=== PATIENT | female | born 1960 | race American Indian/Alaskan Native ===

== ENCOUNTER 2016-02-27 14:34 | Day surgery (SDC) | payer MEDICARE ==
[2016-02-27] MEDS ORDERED: ATIVAN IM ONE (15:45)
[2016-02-27 17:06] VITALS: BP 139/89
--- NOTE | 2016-02-28 10:11 | Magnetic Resonance Report ---
MRI LUMBAR SPINE WITHOUT CONTRAST HISTORY: Low back pain. TECHNIQUE: axial T1, T2. sagittal T1,T2, STIR. COMPARISON: none. FINDINGS: The conus terminates at L1-2. No signal abnormality or mass. The cauda equina is within normal limits. No central canal stenosis. Normal height and alignment of the lumbar vertebra. The facet joints are in appropriate relationship. Mild diffuse facet arthropathy is noted. Normal bone marrow signal. No acute fracture or suspicious bone lesion. The paraspinal soft tissues are unremarkable. The discs are desiccated. Mild disc space narrowing of L5-S1. L1-2: No significant abnormality. L2-3: No significant abnormality. L3-4: No significant abnormality. L4-5: Mild posterior bulging disc and mild to moderate facet arthropathy. Mild hypertrophy of ligamentum flavum. L5-S1: Mild disc space narrowing and marginal spurring is noted. Mild facet arthropathy. Bilateral neural foraminal narrowing is estimated at 50%. The left side appears slightly more affected. IMPRESSION: Lumbar spondylosis as outlined above. L5-S1 appears to be the most affected level No evidence for fracture, bone lesion or malalignment.
== END 2016-02-27 17:20 | disposition home or self-care (01) ==
LOC: OPU 14:34 → MRI 14:34 → OPU 17:20
PROVIDERS: ATTEND Physical Medicine & Rehabilitation Pain Medicine
DX: M47.816 Spondylosis without myelopathy or radiculopathy, lumbar region (principal); M12.88 Other specific arthropathies, not elsewhere classified, other specified site; M48.07 Spinal stenosis, lumbosacral region
CPT/HCPCS: 72148; 96372; J2060

== ENCOUNTER 2017-11-19 07:09 | Day surgery (SDC) | payer MEDICARE ==
[2017-11-17 13:27] LABS: Basophils # (Auto) 0.1 K/mm3 (0.0-0.1); Basophils % (Auto) 0.6 % (0.0-1.8); Eosinophils # (Auto) 0.3 K/mm3 (0.0-0.4); Eosinophils % (Auto) 1.8 % (0.0-4.3); Hematocrit 47.3 % (30.3-42.9); Hemoglobin 15.9 gm/dl (10.1-14.3); Lymphocytes % (Auto) 18.7 % (13.4-35.0); Mean Corpuscular HGB Conc 34 % (30-34); Mean Corpuscular Hemoglobin 30 pg (28-32); Mean Corpuscular Volume 90 fl (79-97); Monocytes # (Auto) 1.3 K/mm3 (0.0-0.8); Monocytes % (Auto) 7.9 % (0.0-7.3); Platelet Count 311 K/mm3 (140-440); Red Blood Count 5.28 M/mm3 (3.65-5.03)
--- NOTE | 2017-11-17 14:10 | Anesthesia Consultation ---
Anesthesia Consult and Med Hx Date of service: 11/17/17 - Airway Anesthetic Teeth Evaluation: Poor, Partials (upper) ROM Head & Neck: Adequate Mental/Hyoid Distance: Adequate Mallampati Class: Class II Intubation Access Assessment: Probably Good - Pulmonary Exam CTA: Yes - Cardiac Exam Cardiac Exam: RRR - Pre-Operative Health Status ASA Pre-Surgery Classification: ASA3 Proposed Anesthetic Plan: General - Pulmonary Hx Smoking: Yes (1/4ppd x 38yrs) COPD: Yes - Central Nervous System Hx Back Pain: Yes (back, neck, knee chronic pain pt.) Hx Psychiatric Problems: Yes (ADHD, depression) - Gastrointestinal Hx Gastroesophageal Reflux Disease: Yes - Hematic Hx Sickle Cell Disease: Yes (Trait only) - Other Systems Hx Alcohol Use: Yes Hx Cancer: No - Additional Comments Anesthesia Medical History Comments: OA, heavy bleeding, DJD, DDD
[2017-11-19] MEDS ORDERED: SILVER NITRATE TP ONE (07:35)
--- NOTE | 2017-11-19 07:55 | Short Stay Summary ---
Short Stay Documentation Date of service: 11/19/17 Narrative H&P: 57y/o with abnormal uterine bleeding. The patient underwent an endometrial biopsy with benign findings. Pelvic ultrasound was unremarkable. She has failed medical management. Patient has been reassessed/reevaluated/re-examined. H&P has been reviewed. No interval changes. - History Principal diagnosis: Abnormal uterine bleeding Past Medical History: COPD, pulmonary embolism, other (chronic pain; osteoporosis) Past Surgical History: , Other (orthopedic surgery; adenoids) Social history: - Allergies and Medications Current Medications: Allergies ibuprofen [From Motrin] Allergy (Verified 11/17/17 17:54) Hives Home Medications Medication Instructions Recorded Confirmed Last Taken Type Oxycodone HCl 5 mg PO TID 02/27/16 11/19/17 11/19/17 05:50 History Sertraline [Zoloft] 100 mg PO QDAY 02/27/16 11/19/17 11/19/17 05:30 History Vitamin D 50,000 units PO QWEEK 02/27/16 11/19/17 11/18/17 History fentaNYL 1 patch INTRADERMA Q3D 02/27/16 11/19/17 11/18/17 History ALBUTEROL NEB's [Proventil] 2.5 mg IH TID PRN 11/14/17 11/19/17 11/18/17 21:45 History ALPRAZolam [Xanax TAB] 1 tab PO HS 11/14/17 11/19/17 11/18/17 History Amoxicillin 500 mg PO BID 11/14/17 11/19/17 11/18/17 History Budesonide/Formoterol Fumarate 1 puff IH PRN PRN 11/14/17 11/19/17 11/19/17 05: 30 History [Symbicort 160-4.5 Mcg Inhaler] Active Medications Famotidine (Pepcid) 20 mg IV PREOP NR Stop: 11/19/17 21:00 Sodium Chloride (Nacl 0.9% 1000 Ml) 1,000 mls @ 42 mls/hr IV DIRECT BEENA Midazolam HCl (Versed) 2 mg IV PREOP PRN PRN Reason: Agitation Stop: 11/19/17 21:00 - Physical exam General appearance: no acute distress Integumentary: no rash HEENT: Atraumatic Lungs: Clear to auscultation Breasts: deferred Heart: Regular rate Gastrointestinal: normal Female Genitourinary: deferred Rectal Exam: deferred Neurological: no Normal gait - Brief post op/procedure progress note Date of procedure: 11/19/17 Pre-op diagnosis: abnormal uterine bleeding Post-op diagnosis: same Procedure: Hysteroscopy Endometrial ablation via NovaSure Anesthesia: GETA Surgeon: BERONICA BRICENO Estimated blood loss: minimal Pathology: none Condition: stable - Hospital course Hospital course: The patient was admitted the day of surgery and underwent a NovaSure for abnormal uterine bleeding. Please see operative note for details of surgery. Her postoperative course was uneventful. - Disposition Condition at discharge: Good Disposition: DC-01 TO HOME OR SELFCARE Short Stay Discharge Plan Activity: other (pelvic rest for 1 week) Diet: regular Additional Instructions: Schedule follow-up with Dr. Benitez in 2-4 weeks
[2017-11-19] MEDS ORDERED: PEPCID IV NR (08:00)
[2017-11-19] MEDS ORDERED: VERSED IV PRN (08:00)
[2017-11-19] MEDS ORDERED: NACL 0.9% 1000 ML 1,000 ML IV SCH (08:00)
[2017-11-19] MEDS ORDERED: DIPRIVAN 10 MG/ML IV ONE (09:00)
[2017-11-19] MEDS ORDERED: XYLOCAINE MPF 2% ONE (09:02)
[2017-11-19] MEDS ORDERED: NACL 0.9% IR ONE (09:10)
[2017-11-19] MEDS ORDERED: DECADRON ONE (09:24)
[2017-11-19] MEDS ORDERED: SUBLIMAZE ONE (09:28)
[2017-11-19] MEDS ORDERED: ZOFRAN ONE (09:29)
[2017-11-19] MEDS ORDERED: TORADOL ONE (09:29)
[2017-11-19] MEDS ORDERED: DILAUDID IV PRN (09:34)
[2017-11-19] MEDS ORDERED: ZOFRAN IV PRN (09:34)
--- NOTE | 2017-11-19 09:34 | Anesthesia Day of Surgery ---
Anesthesia Day of Surgery - Day of Surgery Patient Examined: Yes Patient H&P Reviewed: Yes Patient is NPO: Yes
--- NOTE | 2017-11-19 09:45 | Operative Report ---
Operative Report Operative Report: Date of procedure: 11/19/2017 Pre-operative diagnosis: Abnormal uterine bleeding Post-operative diagnosis: Same as above Procedure name(s): Hysteroscopy; endometrial ablation via NovaSure Surgeon: Loraine Mcgrath M.D. Internet Database Specialist: None Anesthesia: General endotracheal anesthesia Findings normal endometrial cavity Indication: 57-year-old 89 with a history of abnormal uterine bleeding. The patient elected for surgical management. Procedure The patient was taken to the operating room and given general tracheal anesthesia without complication. The patient was prepped and draped in a normal sterile fashion. A bivalve speculum was placed in the patient's vagina single-tooth tenaculums placed on the anterior lip of the cervix. The cervical os was dilated with graduated dilators. A uterine sound was inserted. The hysteroscope was then placed. Insufflation of the uterine cavity was performed with normal saline. Gen. survey of the uterine cavity revealed normal endometrial cavity. The hysteroscope was then removed. The NovaSure device was then inserted. The endometrial length was 5.5 cm and the uterine width was 3.0 cm. The device was engaged and it passed the surveillance of the uterine cavity. The NovaSure device was then deployed with a energy of 91 W that lasted for and 51 seconds. The NovaSure device was then removed. The hysteroscope was again reinserted. There was evidence of charring of the endometrial surface. The remainder of the vaginal instruments were then removed atraumatically. The patient was then successfully extubated taken to the recovery room. All sponge laps and needle counts were correct 2.
[2017-11-19 10:50] VITALS: BP 127/81
--- NOTE | 2017-11-19 12:40 | Post Anesthesia Evaluation ---
- Post Anesthesia Evaluation Patient Participated: Yes Airway Patent: Yes Stable Respiratory Function: Yes Nausea/Vomiting: No Temp > 96.8F: Yes Pain Manageable: Yes Adequeate Hydration: Yes Anesthesia Complications: No
== END 2017-11-19 11:05 | disposition home or self-care (01) ==
LOC: OR 07:09
PROVIDERS: ATTEND Obstetrics & Gynecology
DX: N93.9 Abnormal uterine and vaginal bleeding, unspecified (principal); M19.90 Unspecified osteoarthritis, unspecified site; D57.3 Sickle-cell trait; F32.9 Major depressive disorder, single episode, unspecified; J44.9 Chronic obstructive pulmonary disease, unspecified; F17.210 Nicotine dependence, cigarettes, uncomplicated; Z79.899 Other long term (current) drug therapy; Z88.6 Allergy status to analgesic agent; Z72.89 Other problems related to lifestyle; Z98.891 History of uterine scar from previous surgery; Z86.711 Personal history of pulmonary embolism; Z98.890 Other specified postprocedural states
CPT/HCPCS: 36415; 58563; 85025; A4217; J1100; J1885; J2405; J2704; J3010; J7030; J2250

== ENCOUNTER 2018-04-05 12:33 | Inpatient (IN) | payer MEDICARE ==
--- NOTE | 2018-04-05 12:57 | Cat Scan Report ---
FINAL REPORT EXAM: CT HEAD/BRAIN WO CON HISTORY: neuro deficits < 6hrs or sx present upon awakening TECHNIQUE: CT of the head was performed. No intravenous contrast was administered. PRIORS: None. FINDINGS: There is no evidence of intracranial hemorrhage. There is no edema, mass effect or midline shift. There are no abnormal extra-axial fluid collections. The ventricles are appropriate for brain volume. There is no skull fracture seen. The visualized aspects of the sinuses are clear. IMPRESSION: There is no acute intracranial abnormality identified.
[2018-04-05 13:08] LABS: Basophils # (Auto) 0.1 K/mm3 (0.0-0.1); Basophils % (Auto) 0.6 % (0.0-1.8); Eosinophils # (Auto) 0.2 K/mm3 (0.0-0.4); Eosinophils % (Auto) 1.2 % (0.0-4.3); Hematocrit 44.8 % (30.3-42.9); Hemoglobin 15.1 gm/dl (10.1-14.3); Lymphocytes # (Auto) 3.3 K/mm3 (1.2-5.4); Mean Corpuscular HGB Conc 34 % (30-34); Mean Corpuscular Volume 89 fl (79-97); Monocytes # (Auto) 1.3 K/mm3 (0.0-0.8); Monocytes % (Auto) 8.2 % (0.0-7.3); Platelet Count 363 K/mm3 (140-440); Red Blood Count 5.04 M/mm3 (3.65-5.03); Red Cell Distribution Width 15.4 % (13.2-15.2)
[2018-04-05] MEDS ORDERED: PLAVIX PO ONE (13:10)
--- NOTE | 2018-04-05 13:17 | Emergency Department Report ---
HPI - General Chief Complaint: Neuro Symptoms/Deficit Time Seen by Provider: 04/05/18 12:39 - HPI HPI: Room 20 The patient is a 57-year-old female presented with a chief complaint of left lower extremity numbness and weakness. The patient states she went to sleep last night at 23:00 and her normal state of health when she awakened this morning at 07:00 she noticed weakness and numbness in her left lower extremity almost causing her to fall when she ambulated. Patient denies numbness or weakness in any other extremity. Patient denies dysarthria or dysphagia Location: Left lower extremity Duration: [See above] Quality: Numbness, weakness Severity: Moderate Modifying factors: [see above] Context: [see above] Mode of transportation: [not driving] ED Past Medical Hx - Past Medical History Hx Psychiatric Treatment: Yes (ADHD, depression) Hx COPD: Yes (no home O2) - Surgical History Additional Surgical History: L knee 2011, R knee surgery 2009, , multiple surgeries to left lower extremity secondary to infection - Family History Family history: no significant - Social History Smoking Status: Current Every Day Smoker (1/2 pack per day) Substance Use Type: None (denies illicit drug use), Alcohol (occasional) - Medications Home Medications: Home Medications Medication Instructions Recorded Confirmed Last Taken Type Oxycodone HCl 5 mg PO TID 02/27/16 11/19/17 11/19/17 05:50 History Sertraline [Zoloft] 100 mg PO QDAY 02/27/16 11/19/17 11/19/17 05:30 History Vitamin D 50,000 units PO QWEEK 02/27/16 11/19/17 11/18/17 History fentaNYL 1 patch INTRADERMA Q3D 02/27/16 11/19/17 11/18/17 History ALBUTEROL NEB's [Proventil] 2.5 mg IH TID PRN 11/14/17 11/19/17 11/18/17 21:45 History ALPRAZolam [Xanax TAB] 1 tab PO HS 11/14/17 11/19/17 11/18/17 History Amoxicillin 500 mg PO BID 11/14/17 11/19/17 11/18/17 History Budesonide/Formoterol Fumarate 1 puff IH PRN PRN 11/14/17 11/19/17 11/19/17 05:30 History [Symbicort 160-4.5 Mcg Inhaler] ED Review of Systems ROS: Stated complaint: WEAKNESS Other details as noted in HPI Constitutional: no symptoms reported Eyes: denies: eye pain ENT: denies: throat pain Respiratory: no symptoms reported Cardiovascular: denies: chest pain Endocrine: no symptoms reported Gastrointestinal: denies: abdominal pain Genitourinary: denies: dysuria Musculoskeletal: denies: back pain Neurological: weakness, paresthesias Physical Exam - Physical Exam Vital Signs: Vital Signs 04/05/18 12:37 Temperature 97.6 F Pulse Rate 100 H Respiratory 18 Rate Blood Pressure 141/98 [Right] O2 Sat by Pulse 98 Oximetry Physical Exam: GENERAL: The patient is well-developed well-nourished female lying on stretcher not appearing to be in acute distress. [] HEENT: Normocephalic. Atraumatic. Extraocular motions are intact. Patient has moist mucous membranes. NECK: Supple. Trachea midline CHEST/LUNGS: Clear to auscultation. There is no respiratory distress noted. HEART/CARDIOVASCULAR: Regular. There is no tachycardia. There is no gallop rub or murmur. 2+ left DP ABDOMEN: Abdomen is soft, nontender. Patient has normal bowel sounds. There is no abdominal distention. SKIN: There is no rash. There is no edema. There is no diaphoresis. NEURO: The patient is awake, alert, and oriented. The patient is cooperative. Cranial nerves II through XII grossly intact no pronator drift. The patient has normal speech. Patient is able to hold right lower extremity at a 30 angle for 5 seconds. Patient's left lower extremity drifts down but does not strike the bed within 5 seconds. Patient complains of numbness in the left lower extremity but her sensation to light touch is symmetric in all extremities MUSCULOSKELETAL: There is no evidence of acute injury. NIHSS= 2 LOC a. Alert= 0 Not alert but arousable to minor stimuli=1 Not alert requires repeated or strong stimuli to move= 2 Responds only reflex motor or unresponsive=3 b. asks month and age answers both correctly= 0 answers one correctly= 1 answers neither correctly= 2 Best Gaze normal= 0 abnormal in one or both but forced deviation or total paresis absent= 1 forced deviation or total gaze paresis= 2 Visual no visual loss= 0 partial hemianopia= 1 complete hemianopia= 2 bilateral hemianopia= 3 Facial Palsy normal= 0 minor paralysis= 1 partial paralysis= 2 complete paralysis= 3 Motor Arm no drift= 0 drift before 10 secs but doesnt hit bed= 1 some effort against gravity= 2 no effort against gravity= 3 no movement= 4 Motor leg no drift= 0 (+)drift before 5 secs but doesnt hit bed= 1 drifts to bed before 5 secs= 2 no effort against gravity= 3 no movement= 4 Limb ataxia absent=0 present in one limb= 1 present in two limbs= 2 Sensory normal= 0 (+)mild sensory loss= 1 severe (unaware of being touched)= 2 Best language mild/some loss of fluency= 1 severe= 2 mute= 3 Dysarthria normal= 0 slurs some words= 1 severe/unintelligible= 2 Extinction and Inattention no abnormality= 0 visual, tactile, auditory or personal inattention= 1 profound (doesnt recognize own hand or orients to only one side= 2 ED Course Vital Signs 04/05/18 12:37 Temperature 97.6 F Pulse Rate 100 H Respiratory 18 Rate Blood Pressure 141/98 [Right] O2 Sat by Pulse 98 Oximetry ED Medical Decision Making - Lab Data Result diagrams: 04/05/18 12:54 04/05/18 12:54 Laboratory Tests 04/05/18 04/05/18 04/05/18 12:42 12:54 12:54 WBC 15.9 H RBC 5.04 H Hgb 15.1 H Hct 44.8 H MCV 89 MCH 30 MCHC 34 RDW 15.4 H Plt Count 363 Lymph % (Auto) 21.0 [place] % (Auto) 8.2 H Eos % (Auto) 1.2 Baso % (Auto) 0.6 Lymph # 3.3 [place] # 1.3 H Eos # 0.2 Baso # 0.1 Seg Neutrophils % 69.0 Seg Neutrophils # 11.0 H PT INR APTT Thrombin Time Sodium 137 Potassium 4.0 Chloride 99.3 Carbon Dioxide 28 Anion Gap 14 BUN 16 Creatinine 1.3 H Estimated GFR 51 BUN/Creatinine Ratio 12 Glucose 91 POC Glucose 91 Calcium 8.9 Troponin T < 0.010 04/05/18 04/05/18 12:57 12:58 WBC RBC Hgb Hct MCV MCH MCHC RDW Plt Count Lymph % (Auto) [place] % (Auto) Eos % (Auto) Baso % (Auto) Lymph # [place] # Eos # Baso # Seg Neutrophils % Seg Neutrophils # PT 15.1 H INR 1.12 APTT 24.4 Thrombin Time 15.5 Sodium Potassium Chloride Carbon Dioxide Anion Gap BUN Creatinine Estimated GFR BUN/Creatinine Ratio Glucose POC Glucose Calcium Troponin T - EKG Data -: EKG Interpreted by Me EKG shows normal: sinus rhythm Rate: normal - EKG Data When compared to previous EKG there are: previous EKG unavailable Interpretation: other (no ischemic changes seen) - Radiology Data Radiology results: report reviewed (CT head), image reviewed (CT head) [facility] [address] [place] [address] Cat Scan Report Signed Patient: XUAN GONZALEZ MR#: [id number] : 1960 Acct:[id number] Age/Sex: 57 / F ADM Date: 04/05/18 Loc: ED Attending Dr: Ordering Physician: ED MD DINA Date of Service: 04/05/18 Procedure(s): CT head/brain wo con Accession Number(s): [id number] cc: ED MD DINA FINAL REPORT EXAM: CT HEAD/BRAIN WO CON HISTORY: neuro deficits lt; 6hrs or sx present upon awakening TECHNIQUE: CT of the head was performed. No intravenous contrast was administered. PRIORS: None. FINDINGS: There is no evidence of intracranial hemorrhage. There is no edema, mass effect or midline shift. There are no abnormal extra-axial fluid collections. The ventricles are appropriate for brain volume. There is no skull fracture seen. The visualized aspects of the sinuses are clear. IMPRESSION: There is no acute intracranial abnormality identified. Transcribed By: MADAN Dictated By: MAGDALENA DORAN MD Electronically Authenticated By: MAGDALENA DORAN MD Signed Date/Time: 04/05/18 1257 DD/ 1256 TD/TT: 04/05/18 1256 - Differential Diagnosis CVA Critical care attestation.: If time is entered above; I have spent that time in minutes in the direct care of this critically ill patient, excluding procedure time. ED Disposition Clinical Impression: CVA (cerebral vascular accident) Disposition: DC-09 OP ADMIT IP TO THIS HOSP Is pt being admited?: Yes Does the pt Need Aspirin: No (patient is uncertain if she can take aspirin. Will administer Plavix) Condition: Stable Referrals: EUNICE CRUZ [Primary Care Provider] - 3-5 Days Time of Disposition: 13:44 (hospitalist paged (Dr Noel))
[2018-04-05 13:20] LABS: INR 1.12 (0.87-1.13); Partial Thromboplastin Time 24.4 Sec. (24.2-36.6)
[2018-04-05 13:24] LABS: BUN/Creatinine Ratio 12; Blood Urea Nitrogen 16 mg/dL (7-17); Calcium 8.9 mg/dL (8.4-10.2); Hemolysis Index 4
--- NOTE | 2018-04-05 15:12 | History and Physical Report ---
History of Present Illness Date of examination: 04/05/18 Date of admission: 04/05/18 13:49 Medications and Allergies Allergies Allergy/AdvReac Type Severity Reaction Status Date / Time ibuprofen [From Motrin] Allergy Hives Verified 11/17/17 17:54 Home Medications Medication Instructions Recorded Confirmed Last Taken Type Oxycodone HCl 5 mg PO TID 02/27/16 04/05/18 11/19/17 05:50 History Sertraline [Zoloft] 100 mg PO QDAY 02/27/16 04/05/18 11/19/17 05:30 History Vitamin D 50,000 units PO QWEEK 02/27/16 04/05/18 11/18/17 History fentaNYL 1 patch INTRADERMA Q3D 02/27/16 04/05/18 11/18/17 History ALBUTEROL NEB's [Proventil] 2.5 mg IH TID PRN 11/14/17 04/05/18 11/18/17 21:45 History ALPRAZolam [Xanax TAB] 1 tab PO HS 11/14/17 04/05/18 11/18/17 History Budesonide/Formoterol Fumarate 1 puff IH PRN PRN 11/14/17 04/05/18 11/19/17 05:30 History [Symbicort 160-4.5 Mcg Inhaler] Cyclobenzaprine HCl [Flexeril 5 MG 5 mg PO BID 04/05/18 04/05/18 Unknown History TAB] Exam - Constitutional Vitals: Temp Pulse Resp BP Pulse Ox 97.6 F 100 H 19 141/98 93 04/05/18 12:37 04/05/18 12:37 04/05/18 13:28 04/05/18 12:37 04/05/18 13:28 Results - Labs CBC & Chem 7: 04/05/18 12:54 04/05/18 12:54 Labs: Laboratory Last Values WBC 15.9 K/mm3 (4.5-11.0) H 04/05/18 12:54 RBC 5.04 M/mm3 (3.65-5.03) H 04/05/18 12:54 Hgb 15.1 gm/dl (10.1-14.3) H 04/05/18 12:54 Hct 44.8 % (30.3-42.9) H 04/05/18 12:54 MCV 89 fl (79-97) 04/05/18 12:54 MCH 30 pg (28-32) 04/05/18 12:54 MCHC 34 % (30-34) 04/05/18 12:54 RDW 15.4 % (13.2-15.2) H 04/05/18 12:54 Plt Count 363 K/mm3 (140-440) 04/05/18 12:54 Lymph % (Auto) 21.0 % (13.4-35.0) 04/05/18 12:54 [place] % (Auto) 8.2 % (0.0-7.3) H 04/05/18 12:54 Eos % (Auto) 1.2 % (0.0-4.3) 04/05/18 12:54 Baso % (Auto) 0.6 % (0.0-1.8) 04/05/18 12:54 Lymph # 3.3 K/mm3 (1.2-5.4) 04/05/18 12:54 [place] # 1.3 K/mm3 (0.0-0.8) H 04/05/18 12:54 Eos # 0.2 K/mm3 (0.0-0.4) 04/05/18 12:54 Baso # 0.1 K/mm3 (0.0-0.1) 04/05/18 12:54 Seg Neutrophils % 69.0 % (40.0-70.0) 04/05/18 12:54 Seg Neutrophils # 11.0 K/mm3 (1.8-7.7) H 04/05/18 12:54 PT 15.1 Sec. (12.2-14.9) H 04/05/18 12:57 INR 1.12 (0.87-1.13) 04/05/18 12:57 APTT 24.4 Sec. (24.2-36.6) 04/05/18 12:57 Thrombin Time 15.5 Sec. (15.1-19.6) 04/05/18 12:58 Sodium 137 mmol/L (137-145) 04/05/18 12:54 Potassium 4.0 mmol/L (3.6-5.0) 04/05/18 12:54 Chloride 99.3 mmol/L (98-107) 04/05/18 12:54 Carbon Dioxide 28 mmol/L (22-30) 04/05/18 12:54 Anion Gap 14 mmol/L 04/05/18 12:54 BUN 16 mg/dL (7-17) 04/05/18 12:54 Creatinine 1.3 mg/dL (0.7-1.2) H 04/05/18 12:54 Estimated GFR 51 ml/min 04/05/18 12:54 BUN/Creatinine Ratio 12 % 04/05/18 12:54 Glucose 91 mg/dL (65-100) 04/05/18 12:54 POC Glucose 91 (70-105) 04/05/18 12:42 Calcium 8.9 mg/dL (8.4-10.2) 04/05/18 12:54 Troponin T < 0.010 ng/mL (0.00-0.029) 04/05/18 12:54
[2018-04-05] MEDS ORDERED: DILAUDID IV PRN (20:39)
--- NOTE | 2018-04-05 23:29 | Event Note ---
Date: 04/05/18 See dictated history and physical in the reports Sciatic nerve palsy versus cerebrovascular accident COPD Chronic pain
[2018-04-05] MEDS ORDERED: PEPCID PO SCH (23:45)
[2018-04-05] MEDS ORDERED: NON-FORMULARY (Cyclobenzaprine Hcl [Flexeril 5 Mg Tab] 5 MG) PO SCH (23:45)
[2018-04-05] MEDS ORDERED: NON-FORMULARY (Budesonide/Formoterol Fumarate [Symbicort 160-4.5 Mcg Inhaler] 1 PUFF) IH PRN (23:47)
[2018-04-05] MEDS ORDERED: PROVENTIL IH PRN (23:47)
[2018-04-05] MEDS ORDERED: SODIUM CHLORIDE FLUSH SYRINGE 10 ML IV PRN (23:49)
[2018-04-05] MEDS ORDERED: TYLENOL PO PRN (23:49)
[2018-04-05] MEDS ORDERED: ZOFRAN IV PRN (23:49)
--- NOTE | 2018-04-06 00:05 | History and Physical Report ---
CHIEF COMPLAINT: Left lower extremity weakness and numbness. HISTORY OF PRESENT ILLNESS: A 57-year-old -[place] female comes in for left lower extremity weakness and numbness. The patient went to sleep in normal condition. When she woke up, she woke up with numbness and weakness in the left lower extremity. Unable to walk. No weakness in the left upper extremity or the face. No diplopia. No nasal regurgitation of fluids. No difficulty swallowing. The patient had similar episode a couple of months ago and recovered completely. The patient also has history of COPD and asthma and depression and ADHD. PAST MEDICAL HISTORY: Significant for ADHD, depression, and COPD. PAST SURGICAL HISTORY: Left knee surgery and right knee surgery in 2009 and 2012. Multiple surgeries to left lower extremity secondary to infection. FAMILY HISTORY: No significant family history. SOCIAL HISTORY: Smokes over half a pack a day. Alcohol occasionally. CURRENT MEDICATIONS: Xanax 1 tablet at bedtime, Symbicort inhaler 1 puff q.i.d. p.r.n., fentanyl patch every third day, Zoloft 100 mg once a day. REVIEW OF SYSTEMS: Significant for left lower extremity numbness and weakness. Able to raise her legs, but not able to hold it. PHYSICAL EXAMINATION: GENERAL: Middle-aged female, cooperative during examination. VITAL SIGNS: Blood pressure is 141/98, temperature is 97.6, pulse is 100, respirations are 18. HEENT: Unremarkable. Pupils equal and reactive. NECK: Supple, no lymphadenopathy, no thyromegaly. LUNGS: Clear to auscultation and percussion. Good air entry. CARDIOVASCULAR: S1, S2 heard. No gallop, no murmur, no rub. Apical impulse in left fifth intercostal space and midclavicular line. ABDOMEN: Soft and benign. No hepatosplenomegaly. No guarding, no rigidity. Hernial orifices are normal. EXTREMITIES: Good pedal pulses. No pedal edema. CENTRAL NERVOUS SYSTEM: Significant for normal cranial nerves. Motor system is significant for left lower extremity 3/5 power in left lower extremity. Able to lift, but not able to hold. Also, decreased sensation. Left upper extremity power is 5/5. There is no left facial palsy. SKIN: Normal. LABORATORY DATA: White count is 15,900, H and H is 15.1 and 44.8, platelet count is 363,000. Electrolytes are normal. Creatinine is 1.3. Head CT is normal. No acute findings. ASSESSMENT AND PLAN: 1. Left lower extremity weakness, possible sciatic nerve compression. The patient had similar episode before. The cerebrovascular accident unlikely. We will get MRI of the LS spine. Also, Neurology consult. Physical therapy. 2. Chronic obstructive pulmonary disease. Continue bronchodilators. 3. Attention deficit hyperactivity disorder. 4. Depression. Continue antidepressants. 5. Deep venous thrombosis prophylaxis. Continue Lovenox 40 mg subcutaneous daily. JOB# [id number] VSM/NTS
[2018-04-06] MEDS: PEPCID PO SCH ×3 (01:09→22:18)
[2018-04-06 06:11] LABS: Basophils # (Auto) 0.1 K/mm3 (0.0-0.1); Basophils % (Auto) 0.4 % (0.0-1.8); Eosinophils # (Auto) 0.2 K/mm3 (0.0-0.4); Eosinophils % (Auto) 1.3 % (0.0-4.3); Hematocrit 43.2 % (30.3-42.9); Hemoglobin 14.4 gm/dl (10.1-14.3); Lymphocytes % (Auto) 20.2 % (13.4-35.0); Mean Corpuscular HGB Conc 33 % (30-34); Mean Corpuscular Volume 88 fl (79-97); Monocytes # (Auto) 1.4 K/mm3 (0.0-0.8); Monocytes % (Auto) 9.2 % (0.0-7.3); Platelet Count 367 K/mm3 (140-440); Red Blood Count 4.92 M/mm3 (3.65-5.03); Red Cell Distribution Width 15.3 % (13.2-15.2)
[2018-04-06 06:31] LABS: Alanine Aminotransferase 13 units/L (7-56); Albumin 3.9 g/dL (3.9-5); BUN/Creatinine Ratio 29; Blood Urea Nitrogen 20 mg/dL (7-17); Hemolysis Index 1
[2018-04-06] MEDS: PERCOCET 5/325 PO PRN (07:29)
[2018-04-06] MEDS: BROVANA NEBU IH SCH ×2 (07:39→20:33)
[2018-04-06] MEDS ORDERED: PULMICORT IH SCH (08:00)
[2018-04-06] MEDS: ROXICODONE PO SCH ×3 (08:22→20:17)
[2018-04-06] MEDS: FLEXERIL PO SCH ×2 (09:33→22:18)
[2018-04-06] MEDS: ZOLOFT PO SCH (09:33)
[2018-04-06] MEDS: SODIUM CHLORIDE FLUSH SYRINGE 10 ML IV SCH (09:34)
[2018-04-06] MEDS ORDERED: DURAGESIC TD SCH (10:00)
[2018-04-06 13:16] LABS: Chol/HDL Ratio 2.53 %
--- NOTE | 2018-04-06 14:18 | Progress Note ---
Assessment and Plan Assessment and plan: Left-sided weakness, suspected TIA - Resolved - MRI of the lumbar spine was done and the reading is pending - Neurology consulted and recommended MRI of the head suspected TIA - Carotid Doppler and echo ordered Morbid obesity - Patient counseled about weight loss Depression -Continue sertraline History of sciatica - continue home pain Medicine DVT prophylaxis - On Lovenox Disposition - Continue inpatient care to finish her CVA workup History Interval history: Patient was seen and evaluated this morning, patient was sitting comfortably, left leg weakness subsided. Hospitalist Physical - Physical exam Narrative exam: Not in cardiopulmonary distress. The patient morbidly obese. Vital signs as documented. Head exam is unremarkable. No scleral icterus . Neck is without jugular venous distension, thyromegaly, or carotid bruits. Lungs are clear to auscultation. Cardiac exam reveals regular rate and Rhythm. First and second heart sounds normal. No murmurs, rubs or gallops. Abdominal exam reveals normal bowel sounds, no masses, no organomegaly and no aortic enlargement. Extremities are nonedematous and both femoral and pedal pulses are normal. REGISTERED PUBLIC HEALTH NURSE: Alert and oriented 3. No focal weakness. - Constitutional Vitals: Temp Pulse Resp BP Pulse Ox 97.9 F 87 19 125/83 92 04/06/18 07:25 04/06/18 11:14 04/06/18 10:00 04/06/18 11:14 04/06/18 11:14 Results - Labs CBC & Chem 7: 04/06/18 04:33 04/06/18 04:33 Labs: Laboratory Last Values WBC 14.9 K/mm3 (4.5-11.0) H 04/06/18 04:33 RBC 4.92 M/mm3 (3.65-5.03) 04/06/18 04:33 Hgb 14.4 gm/dl (10.1-14.3) H 04/06/18 04:33 Hct 43.2 % (30.3-42.9) H 04/06/18 04:33 MCV 88 fl (79-97) 04/06/18 04:33 MCH 29 pg (28-32) 04/06/18 04:33 MCHC 33 % (30-34) 04/06/18 04:33 RDW 15.3 % (13.2-15.2) H 04/06/18 04:33 Plt Count 367 K/mm3 (140-440) 04/06/18 04:33 Lymph % (Auto) 20.2 % (13.4-35.0) 04/06/18 04:33 Summit % (Auto) 9.2 % (0.0-7.3) H 04/06/18 04:33 Eos % (Auto) 1.3 % (0.0-4.3) 04/06/18 04:33 Baso % (Auto) 0.4 % (0.0-1.8) 04/06/18 04:33 Lymph # 3.0 K/mm3 (1.2-5.4) 04/06/18 04:33 Summit # 1.4 K/mm3 (0.0-0.8) H 04/06/18 04:33 Eos # 0.2 K/mm3 (0.0-0.4) 04/06/18 04:33 Baso # 0.1 K/mm3 (0.0-0.1) 04/06/18 04:33 Seg Neutrophils % 68.9 % (40.0-70.0) 04/06/18 04:33 Seg Neutrophils # 10.3 K/mm3 (1.8-7.7) H 04/06/18 04:33 PT 15.1 Sec. (12.2-14.9) H 04/05/18 12:57 INR 1.12 (0.87-1.13) 04/05/18 12:57 APTT 24.4 Sec. (24.2-36.6) 04/05/18 12:57 Thrombin Time 15.5 Sec. (15.1-19.6) 04/05/18 12:58 Sodium 140 mmol/L (137-145) 04/06/18 04:33 Potassium 3.7 mmol/L (3.6-5.0) 04/06/18 04:33 Chloride 101.6 mmol/L (98-107) 04/06/18 04:33 Carbon Dioxide 26 mmol/L (22-30) 04/06/18 04:33 Anion Gap 16 mmol/L 04/06/18 04:33 BUN 20 mg/dL (7-17) H 04/06/18 04:33 Creatinine 0.7 mg/dL (0.7-1.2) 04/06/18 04:33 Estimated GFR > 60 ml/min 04/06/18 04:33 BUN/Creatinine Ratio 29 % 04/06/18 04:33 Glucose 110 mg/dL (65-100) H 04/06/18 04:33 POC Glucose 106 (70-105) H 04/06/18 11:44 Hemoglobin A1c 6.0 % (4-6) 04/06/18 00:07 Calcium 9.0 mg/dL (8.4-10.2) 04/06/18 04:33 Total Bilirubin 0.40 mg/dL (0.1-1.2) 04/06/18 04:33 AST 15 units/L (5-40) 04/06/18 04:33 ALT 13 units/L (7-56) 04/06/18 04:33 Alkaline Phosphatase 64 units/L (35-129) 04/06/18 04:33 Troponin T < 0.010 ng/mL (0.00-0.029) 04/05/18 12:54 Total Protein 7.4 g/dL (6.3-8.2) 04/06/18 04:33 Albumin 3.9 g/dL (3.9-5) 04/06/18 04:33 Albumin/Globulin Ratio 1.1 % 04/06/18 04:33 Triglycerides 123 mg/dL (2-149) 04/06/18 04:33 Cholesterol 167 mg/dL (50-199) 04/06/18 04:33 LDL Cholesterol Direct 81 mg/dL (50-130) 04/06/18 04:33 HDL Cholesterol 66 mg/dL (40-59) H 04/06/18 04:33 Cholesterol/HDL Ratio 2.53 % 04/06/18 04:33
[2018-04-06] MEDS: HABITROL TD SCH (16:27)
--- NOTE | 2018-04-06 16:54 | Vascular Lab Report ---
FINAL REPORT EXAM: VL CAROTID DUPLEX BILAT HISTORY: transient left sided weakness TECHNIQUE: Grayscale and color and spectral Doppler ultrasound imaging of the carotid arteries was p erformed. PRIORS: None. FINDINGS: No areas of complete occlusion. Normal waveforms are seen throughout. No aneurysm. Normal flow is see n in the external carotid arteries. Antegrade flow is seen in the vertebral arteries. Mild bilateral atherosclerotic plaque was seen. Peak systolic velocities in cm/s below: Right: CCA: 108 proximally, 44 distally ICA: 39 proximally, 56 mid, 61 distally ECA: 98 Left: CCA: 108 proximally, 75 distally ICA: 32 proximally, 49 mid, 51 distally ECA: 86 The right ICA:CCA ratio is 1.38. The left ICA:CCA ratio is 0.68. IMPRESSION: Less than 50 percent stenosis of the internal carotid arteries.
--- NOTE | 2018-04-06 18:37 | Magnetic Resonance Report ---
FINAL REPORT PROCEDURE: MRI of the lumbar spine without IV contrast, MRI lumbar spine with IV contrast TECHNIQUE: Magnetic resonance imaging of the lumbar spine was performed using standard pulse sequenc es before and after the IV injection of paramagnetic contrast. CPT 76164 HISTORY: LLE weakness COMPARISON: No prior studies are available for comparison. FINDINGS: No fracture or subluxation is seen. Modic type 2 degenerative endplate changes are visualized at the L5-S1 level. There is partial lumbarization of the S1 vertebral body, normal variant. The conus appea rs normal. No mass is seen. The cord appropriately terminates L1-L2 disc space. Today's study is limi [place] by motion artifact. L1-2: There is a Schmorl's node involving the inferior endplate of L1. Minimal disc bulge is present without focal disc herniation or spinal stenosis. The neural foramina appear adequate.. L2-3: No evidence of disc herniation or spinal stenosis. Neural foramina appear adequate. Mild facet arthritis visualized bilaterally.. L3-4: Mild diffuse posterior disc bulge present without focal disc herniation or spinal stenosis. The neural foramina bilaterally appear adequate. Mild facet arthritis is visualized bilaterally.. L4-5: Mild diffuse posterior disc bulge present without focal disc herniation or spinal stenosis. The neural foramina appear adequate. Moderate facet arthritis visualized bilaterally.. L5-S1: Mild diffuse posterior disc bulge present without focal disc herniation or spinal stenosis. Mo derate facet arthritis visualized bilaterally. The neural foramina bilaterally are narrowed secondary to facet arthritis, ligamentum flavum laxity in the disc bulge. I cannot exclude mild compression of the exiting left L5 nerve root.. Other: None . IMPRESSION: Mild disc bulges are present. No focal disc herniation or spinal stenosis is seen. [id number] areas of facet arthritis present as described above. Neural foraminal narrowing seen bilaterally at L5-S1, greater on the left than the right. I cannot exclude mild compression of the e xiting left L5 nerve root. Schmorl's node as described.
[2018-04-06] MEDS: PULMICORT IH SCH (20:33)
--- NOTE | 2018-04-06 21:21 | Consultation ---
History of Present Illness Consult date: 04/06/18 Requesting physician: JUAN M FULLER Reason for Consult: numb, weak left leg Chief complaint: numbness and weakness of left leg History of present illness: This 57-year-old right-handed -Nepalese female at 7 AM yesterday awoke with her left leg completely numb with weakness along with tingling in the left foot but without pain in her leg and lower back. Today she has still some ting ling in the left foot but weakness and other numbness are gone. At time she has to hold on to fernandez because she is unstable due to multiple left knee surgeries. Her only other problem with the left leg had been sciatic nerve pain 4 years ago which responded to a Toradol shot and she later got lumbar epidural steroids injections last one of which was in November. Lumbar spine MRI shows L5-S1 bulge extending into both foramina but seen also on previous MRI. MRI brain has been ordered but is still pending. Past History Past Medical History: COPD, other (anxiety and depression for which she takes sertraline and Xanax, chronic pain for which she is on a fentanyl patch). denies: diabetes (except gestational with one ), hypertension, stroke Past Surgical History: cataract removal (bilateral. 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 denies: alcohol abuse (1 or 2 shots of hard liquor every month), prescription drug abuse, IV drug use (never illicit drugs.) Family history: diabetes (father), other (no epilepsy). denies: hypertension (no brain aneurysms), stroke Medications and Allergies Allergies Allergy/AdvReac Type Severity Reaction Status Date / Time ibuprofen [From Motrin] Allergy Hives Verified 11/17/17 17:54 Home Medications Medication Instructions Recorded Confirmed Last Taken Type Oxycodone HCl 5 mg PO TID 02/27/16 04/05/18 11/19/17 05:50 History Sertraline [Zoloft] 100 mg PO QDAY 02/27/16 04/05/1818 05:30 History Vitamin D 50,000 units PO QWEEK 02/27/16 04/05/18 11/18/17 History fentaNYL 1 patch INTRADERMA Q3D 02/27/16 04/05/18 11/18/17 History ALBUTEROL NEB's [Proventil] 2.5 mg IH TID PRN 11/14/17 04/05/18 11/18/17 21:45 History ALPRAZolam [Xanax TAB] 1 tab PO HS 11/14/17 04/05/18 11/18/17 History Budesonide/Formoterol Fumarate 1 puff IH PRN PRN 11/14/17 04/05/18 11/19/17 05:30 History [Symbicort 160-4.5 Mcg Inhaler] Cyclobenzaprine HCl [Flexeril 5 MG 5 mg PO BID 04/05/18 04/05/18 Unknown History TAB] Active Meds: Active Medications Acetaminophen (Tylenol) 650 mg PO Q4H PRN PRN Reason: Pain MILD(1-3)/Fever >100.5/GARCIA Albuterol (Proventil) 2.5 mg IH TID PRN PRN Reason: Wheezing Alprazolam (Xanax) 1 mg PO [facility] Arformoterol Tartrate (Brovana Nebu) 15 mcg IH Q12HRT [facility] Last Admin: 04/06/18 20:33 Dose: 15 mcg Documented by: Budesonide (Pulmicort) 0.5 mg IH Q12HRT [facility] Last Admin: 04/06/18 20:33 Dose: 0.5 mg Documented by: Cyclobenzaprine HCl (Flexeril) 5 mg PO BID [facility] Last Admin: 04/06/18 09:33 Dose: 5 mg Documented by: Famotidine (Pepcid) 10 mg PO BID [facility] Last Admin: 04/06/18 09:33 Dose: 10 mg Documented by: Fentanyl (Duragesic) 50 mcg TD Q3D [facility] Last Admin: 04/06/18 11:17 Dose: 50 mcg Documented by: Hydromorphone HCl (Dilaudid) 0.5 mg IV Q3H PRN PRN Reason: Pain , Severe (7-10) Last Admin: 04/05/18 23:49 Dose: 0.5 mg Documented by: Nicotine (Habitrol) 21 mg TD QDAY [facility] Last Admin: 04/06/18 16:27 Dose: 21 mg Documented by: Ondansetron HCl (Zofran) 4 mg IV Q8H PRN PRN Reason: Nausea And Vomiting Oxycodone HCl (Roxicodone) 5 mg PO TID [facility] Last Admin: 04/06/18 16:26 Dose: 5 mg Documented by: Oxycodone/Acetaminophen (Percocet 5/325) 1 tab PO Q6H PRN PRN Reason: Pain, Moderate (4-6) Sertraline HCl (Zoloft) 100 mg PO QDAY [facility] Last Admin: 04/06/18 09:33 Dose: 100 mg Documented by: Sodium Chloride (Sodium Chloride Flush Syringe 10 Ml) 10 ml IV BID [facility] Last Admin: 04/06/18 09:34 Dose: 10 ml Documented by: Sodium Chloride (Sodium Chloride Flush Syringe 10 Ml) 10 ml IV PRN PRN PRN Reason: LINE FLUSH Review of Systems All systems: negative (not usually headaches, vertigo only before some bad teeth were removed. Some snoring but no sleep apnea on testing. Dozes off some and takes occasional naps, takes Xanax to sleep. Occasionally sleepy driving. No memory problems.) Physical Examination - Vital Signs Vital Signs: Vital Signs Temp Pulse Resp BP Pulse Ox 97.6 F 100 H 18 141/98 98 04/05/18 12:37 04/05/18 12:37 04/05/18 12:37 04/05/18 12:37 04/05/18 12:37 - Physical Exam Narrative exam: General Appearance: well developed but moderately obese (per BMI) mid 50s -Nepalese female in [facility], with her significant other at the bedside. HEENT: atraumatic, normocephalic; no bruits, 2+ Hazel without soreness or induration or enlargement, sclerae nonicteric. Oropharynx pink and moist.` Neck: supple, no bruits. Heart: no murmur or extra sounds. Extremities: no clubbing, cyanosis or edema. 2+ dorsalis pedis pulses bilaterally. Neurologic Exam: Mental Status: Awake, alert, oriented X 3, speech is clear, names pen but not tip of pen though she gets glasses in their lenses, and abstracts well. 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 Cranial Nerves: sawyer full, no papilledema, SVPs present, PERRLA, EOMs full without nystagmus or diplopia, facial sensation intact to pinprick and light touch, no facial weakness, Lopez is midline, palate rises symmetrically to phonation, shoulder shrug is 5 X 2, tongue protrudes midline. Cerebellar: finger to nose and heel to garcia are normal. Sensory: intact to light touch, pinprick decreased around her left knee incision scars, intact vibrations. Double simultaneous stimulation is intact. Motor Exam Upper Extremities: no drift or pronation, Ruslan intact. Mud Jack Nozzleman are 5 X 2, tone is normal. No atrophy or fasciculations are noted visually. Motor Exam Lower Extremities: no leg lag, strength is 5 except as follows: iliopsoas is 4+ to 5- on the left with some knee pain, quadriceps is 5-on the left with some knee pain, anterior tibials and gastrocnemius are 5 X 2. Ruslan intact. Tone is normal. No atrophy or fasciculations are noted visually. Reflexes: Palmomental, snout and jaw jerk are negative. Triceps are 2 right and 1 left, biceps are 2 right and 1+ left and brachioradialis are 2 right and 1 left. Yaneth's is negative right and positive left. Knee jerks are 0 bilaterally remaining 0 even with reinforcement, and ankle jerks are 0 bilaterally becoming 1+ right and trace left with reinforcement and without clonus. Toes are downgoing bilaterally to Babinski testing. Results - Laboratory Findings CBC and BMP: 04/06/18 04:33 04/06/18 04:33 Abnormal Lab Findings: Abnormal Labs 04/05/18 04/05/18 04/05/18 12:54 12:54 12:57 WBC 15.9 H RBC 5.04 H Hgb 15.1 H Hct 44.8 H RDW 15.4 H Foster % (Auto) 8.2 H Foster # 1.3 H Seg Neutrophils # 11.0 H PT 15.1 H BUN Creatinine 1.3 H Glucose POC Glucose HDL Cholesterol 04/06/18 04/06/18 04/06/18 04:33 04:33 04:33 WBC 14.9 H RBC Hgb 14.4 H Hct 43.2 H RDW 15.3 H Foster % (Auto) 9.2 H Foster # 1.4 H Seg Neutrophils # 10.3 H PT BUN 20 H Creatinine Glucose 110 H POC Glucose HDL Cholesterol 66 H 04/06/18 04/06/18 11:44 17:16 WBC RBC Hgb Hct RDW Foster % (Auto) Foster # Seg Neutrophils # PT BUN Creatinine Glucose POC Glucose 106 H 127 H HDL Cholesterol Assessment and Plan Impression: 1. TIA vs stroke 2. Tobacco use Plan: 1. Echocardiogram was ordered by Dr. Fuller and I have added a bubble portion. 2. MRI brain is still pending. 3. Depending on MRI results, may need 30 day event monitoring as an outpatient to look for occult PAF. 60 minutes spent including importance of stopping smoking does show old or new strokes or both. Possible need for 30 day event recording. I told her we will start aspirin. LDL on review is okay. If MRI is negative, still seems likely to have been a TIA for which emphasis should be on stopping smoking. Sciatic neuropathy would be unlikely to present with weakness and numbness and not pain. Thank you for an interesting consultation on this pleasant mid 50s lady. Will sign off, call for any unusual findings on echo or MRI.
[2018-04-06] MEDS ORDERED: XANAX PO SCH (22:00)
[2018-04-06] MEDS: BABY ASPIRIN PO SCH (22:18)
[2018-04-07] MEDS: PERCOCET 5/325 PO PRN (04:58)
[2018-04-07 06:33] LABS: BUN/Creatinine Ratio 20; Blood Urea Nitrogen 12 mg/dL (7-17); Calcium 8.6 mg/dL (8.4-10.2); Hemolysis Index 3
[2018-04-07] MEDS: HABITROL TD SCH (10:31)
[2018-04-07] MEDS: BABY ASPIRIN PO SCH (10:32)
[2018-04-07] MEDS: FLEXERIL PO SCH (10:32)
[2018-04-07] MEDS: ZOLOFT PO SCH (10:32)
[2018-04-07] MEDS: PEPCID PO SCH (10:32)
[2018-04-07] MEDS: ROXICODONE PO SCH (10:36)
[2018-04-07] MEDS: SODIUM CHLORIDE FLUSH SYRINGE 10 ML IV SCH ×2 (10:36→10:37)
[2018-04-07] MEDS: PULMICORT IH SCH (11:15)
[2018-04-07] MEDS: BROVANA NEBU IH SCH (11:15)
--- NOTE | 2018-04-07 11:37 | Magnetic Resonance Report ---
MRI OF THE BRAIN WITHOUT CONTRAST: HISTORY: CVA, left lower extremity weakness PROCEDURE: Multiplanar, multisequence MR imaging of the brain without IV contrast was performed. FINDINGS: Compared to the CT head dated 04/05/18. The brain parenchyma signal intensity and its schneider white interface are within normal limits on all sequences. No evidence for acute ischemia, hemorrhage or mass. No chronic infarct or extra-axial fluid collection. The midline structures are central. The basal cisterns are patent. Normal ventricular size. Chronic bilateral medial orbital wall right fractures are suspected which are best demonstrated on the axial T2 images and coronal flair images. The visualized paranasal sinuses and mastoid air cells are well aerated. IMPRESSION: Unremarkable non-enhanced MRI of the brain. Chronic bilateral medial orbital wall fractures.
--- NOTE | 2018-04-07 11:43 | Discharge Summary ---
Providers - Providers Date of Admission: 04/05/18 13:49 Attending physician: ALIZE ARCOS MD 04/05/18 23:49 Consult to Physician [CONS] Routine Comment: Consulting Provider: SHELBY MCKEON Physician Instructions: Reason For Exam: Sciatic radiculopathy 04/06/18 14:13 Physical Therapy Evaluation and Treat [CONS] Routine Comment: Reason For Exam: left leg weakness Primary care physician: EUNICE CRUZ Hospitalization Reason for admission: TIA Condition: Serious Hospital course: This 57-year-old right-handed -[place] female at 7 AM yesterday awoke with her left leg completely numb with weakness along with tingling in the left foot but without pain in her leg and lower back. Today she has still some tingling in the left foot but weakness and other numbness are gone. At time she has to hold on to fernandez because she is unstable due to multiple left knee surgeries. Her only other problem with the left leg had been sciatic nerve pain 4 years ago which responded to a Toradol shot and she later got lumbar epidural steroids injections last one of which was in November. Lumbar spine MRI shows L5-S1 bulge extending into both foramina but seen also on previous MRI. MRI brain has been ordered but is still pending. MRI studies did return and was negative was discussed with neurologist. The diagnosis of TIA was still upheld patient was started on statin therapy and also on aspirin with strong recommendation for weight loss and diet adjustment this patient was noted to pressure Arizmendi type fast food. She verbalized understanding we'll also recommend outpatient physical therapy for Pamela exercises. Left-sided weakness,TIA Morbid obesity Depression History of sciatica Chronic opioid dependence Disposition: [id number] HOME UNDER HOME [facility] Time spent for discharge: 35 mins Core Measure Documentation - Palliative Care Palliative Care/ Comfort Measures: Not Applicable - Core Measures Any of the following diagnoses?: stroke - Stroke Discharge Requirements Statin for LDL = or >70 mg/dl on DC: Yes Anticoag for atrial fib/atrial flutter: Not Applicable Antithrombotic for ischemic stroke: Yes Exam - Physical Exam Narrative exam: VITAL SIGNS: Reviewed. GENERAL: The patient appeared well nourished and normally developed. morbidly obese. Vital signs as documented. HEAD: No signs of head trauma. EYES: Pupils are equal. Extraocular motions intact. EARS: Hearing grossly intact. MOUTH: Oropharynx is normal. NECK: No adenopathy, no JVD. CHEST: Chest with clear breath sounds bilaterally. No wheezes, rales, or rhonchi. CARDIAC: Regular rate and rhythm. S1 and S2, without murmurs, gallops, or rubs. VASCULAR: No Edema. Peripheral pulses normal and equal in all extremities. ABDOMEN: Soft, without detectable tenderness. No sign of distention. No rebound or guarding, and no masses palpated. Bowel Sounds normal. MUSCULOSKELETAL: Good range of motion of all major joints. Extremities without clubbing, cyanosis or edema. NEUROLOGIC EXAM: Alert and oriented x 3. No focal sensory or strength deficits. Speech normal. Follows commands. PSYCHIATRIC: Mood normal. SKIN: No rash or lesions. - Constitutional Vitals: Temp Pulse Resp BP Pulse Ox 98.0 F 91 H 18 120/76 94 04/07/18 04:22 04/07/18 11:16 04/07/18 11:16 04/07/18 04:22 04/07/18 10:00 Plan Activity: advance as tolerated, fall precautions Diet: low fat Special Instructions: record daily weights, record daily BP diary Follow up with: EUNICE CRUZ [Primary Care Provider] - 3-5 Days GUY PIÑA MD [Staff Physician] - 7 Days Prescriptions: AtorvaSTATin [Lipitor] 40 mg PO QHS #30 tab Aspirin [Aspirin BABY CHEW TAB] 81 mg PO QDAY #30 tab.chew Other Discharge Orders: Occupational Therapy (Amb) Location: None Selected Physicial Therapy (Amb) Location: None Selected
[2018-04-07 11:44] VITALS: BP 130/81
== END 2018-04-07 15:31 | disposition home health service (06) | DRG 69 ==
LOC: ED 12:33 → 4A 13:49
PROVIDERS: ADMIT Internal Medicine; ATTEND Internal Medicine
DX: G45.9 Transient cerebral ischemic attack, unspecified (principal); G81.94 Hemiplegia, unspecified affecting left nondominant side; Z68.41 Body mass index [BMI] 40.0-44.9, adult; F11.20 Opioid dependence, uncomplicated; F90.9 Attention-deficit hyperactivity disorder, unspecified type; J44.9 Chronic obstructive pulmonary disease, unspecified; E66.01 Morbid (severe) obesity due to excess calories; F17.210 Nicotine dependence, cigarettes, uncomplicated; F32.9 Major depressive disorder, single episode, unspecified; M54.30 Sciatica, unspecified side; F41.9 Anxiety disorder, unspecified; G89.29 Other chronic pain; Z96.652 Presence of left artificial knee joint; Z98.42 Cataract extraction status, left eye; Z71.3 Dietary counseling and surveillance; Z99.81 Dependence on supplemental oxygen; Z98.41 Cataract extraction status, right eye; Z83.3 Family history of diabetes mellitus; Z88.8 Allergy status to other drugs, medicaments and biological substances
CPT/HCPCS: 36415; 70450; 70551; 72158; 80048; 80053; 80061; 82962; 83036; 84484; 85025; 85610; 85670; 85730; 93005; 93010; 93306; 93880; 94640; 94760; 96374; 99285; 99406; G0378; A9577; J1170

== ENCOUNTER 2018-04-22 19:03 | Emergency (ER) | payer MEDICARE ==
--- NOTE | 2018-04-22 19:17 | Emergency Department Report ---
Blank Doc - Documentation Documentation: This is a 57-year-old female that presents with cough and right side rib pain. Patient denies any abdominal pain, chest pain or SOB. Denies any other symptoms or complaints. HX of PE. This initial assessment/diagnostic orders/clinical plan/treatment(s) is/are subject to change based on patient's health status, clinical progression and re- assessment by fellow clinical providers in the ED. Further treatment and workup at subsequent clinical providers discretion. Patient/guardians urged not to elope from the ED as their condition may be serious if not clinically assessed and managed. Initial orders include: 1- Patient sent to [facility] for further evaluation and treatment 2- CXR 3- Labs
--- NOTE | 2018-04-22 20:14 | XRay Report ---
PROCEDURE: XR CHEST ROUTINE 2V TECHNIQUE: Chest 2 views HISTORY: cough COMPARISONS: FINDINGS: Cardiac and mediastinal contours are unremarkable. There is mild thickening of the minor fissure. No focal pulmonary infiltrate identified. No pleural fluid collection seen. The pulmonary vasculature is unremarkable. IMPRESSION: Mild thickening of the minor fissure noted Otherwise negative study. This document is electronically signed by John Abernathy MD., April 22 2018 08:12:37 PM ET
[2018-04-22 20:20] LABS: BUN/Creatinine Ratio 24; Blood Urea Nitrogen 19 mg/dL (7-17); Calcium 9.1 mg/dL (8.4-10.2); Hemolysis Index 16
[2018-04-22 20:22] LABS: Basophils # (Auto) 0.1 K/mm3 (0.0-0.1); Basophils % (Auto) 0.5 % (0.0-1.8); Eosinophils # (Auto) 0.3 K/mm3 (0.0-0.4); Hematocrit 41.9 % (30.3-42.9); Lymphocytes # (Auto) 3.6 K/mm3 (1.2-5.4); Lymphocytes % (Auto) 21.7 % (13.4-35.0); Mean Corpuscular HGB Conc 33 % (30-34); Mean Corpuscular Volume 89 fl (79-97); Monocytes # (Auto) 1.4 K/mm3 (0.0-0.8); Monocytes % (Auto) 8.1 % (0.0-7.3); Platelet Count 361 K/mm3 (140-440); Red Blood Count 4.73 M/mm3 (3.65-5.03); Red Cell Distribution Width 15.2 % (13.2-15.2)
[2018-04-22] MEDS ORDERED: ZOFRAN IV ONE (22:05)
[2018-04-22] MEDS ORDERED: ZOSYN/NS 3.375GM/50ML 3.375 GM/50 ML BAG IV ONE (22:05)
[2018-04-22] MEDS ORDERED: MORPHINE IV ONE (22:05)
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
[2018-04-22 23:01] LABS: Bacteria,Urine 1+ /HPF (Negative); Bilirubin,Urine NEG (Negative); Blood,Urine NEG (Negative); Color,Urine Yellow (Yellow); Protein,Urine <15 mg/dL mg/dL (Negative); Urobilinogen,Urine < 2.0 mg/dL (<2.0)
[2018-04-23] MEDS ORDERED: MORPHINE IV ONE (01:05)
--- NOTE | 2018-04-23 01:13 | Cat Scan Report ---
PROCEDURE: CT ABDOMEN PELVIS W CON TECHNIQUE: Computerized axial tomography of the abdomen and pelvis was performed after the IV inject ion of iodinated nonionic contrast. CT DOSE LENGTH PRODUCT: mGycm HISTORY: abdominal pain, COMPARISONS: None . FINDINGS: Visualized lower thorax: No significant abnormality. Liver: Normal size and attenuation. Spleen: Normal size and attenuation. Gallbladder and biliary system: Normal. Pancreas: Normal. Adrenals: Normal. Kidneys: Normal. GI tract: There is no bowel obstruction, colitis or enteritis. The appendix is normal. . Lymph nodes and mesentery: Normal. Vasculature: Normal.. Bladder: Normal. Reproductive organs: The uterus is unremarkable. There is a 4.8 cm cyst in the right ovary.. Peritoneum: There is no ascites or free air, abscess or adenopathy.. Musculoskeletal structures: No significant abnormality. IMPRESSION: There is no bowel obstruction, colitis or enteritis. The appendix is normal. . The uterus is unremarkable. There is a 4.8 cm cyst in the right ovary.. There is no ascites or free air, abscess or adenopathy.. . This document is electronically signed by Colt Stone MD., April 23 2018 01:11:24 AM ET
[2018-04-23 01:43] VITALS: BP 142/99
== END 2018-04-23 01:52 | disposition home or self-care (01) ==
LOC: ED 19:03
DX: N83.201 Unspecified ovarian cyst, right side (principal); J44.9 Chronic obstructive pulmonary disease, unspecified; M19.90 Unspecified osteoarthritis, unspecified site; F90.9 Attention-deficit hyperactivity disorder, unspecified type; F32.9 Major depressive disorder, single episode, unspecified; D57.3 Sickle-cell trait; Z86.711 Personal history of pulmonary embolism; Z79.899 Other long term (current) drug therapy; Z88.6 Allergy status to analgesic agent
CPT/HCPCS: 36415; 71046; 74177; 80048; 81001; 85025; 85379; 87040; 96365; 96375; 96376; 99284; J2270; J2405; J2543; Q9967

== ENCOUNTER → 2019-04-14 | Emergency (ER) | payer MEDICARE ==
[2019-04-14 16:47] VITALS: BP 131/82
--- NOTE | 2019-04-14 17:03 | Event Note ---
ED Screening Note Date of service: 04/14/19 Time: 16:46 ED Screening Note: 58 y o Female presents to Ed cc of shoulder pain x 2 years Pt states that she sees an orthopedic doctor who has an MRI scheduled tomorrow and a follow up appt on april 27 GENERAL: Alert and oriented x3, no apparent distress, Normal Gait, atraumatic. EXTREMITIES/MUSCULOSKELETAL: No cyanosis, clubbing, rash, lesions or edema. Full ROM bilaterally. UE/LE Pulses 2+ bilaterally. LE and UE 5+ strength bilaterally, straight leg raise negative bilaterally This initial assessment/diagnostic orders/clinical plan/treatment(s) is/are subject to change based on patients health status, clinical progression and re-assessment by fellow clinical providers in the ED. Further treatment and workup at subsequent clinical providers discretion. Patient/guardian urged not to elope from the ED as their condition may be serious if not clinically assessed and managed. Initial orders include: Pt presents with a non-medical emergency Discussed with pt to keep her MRI appointment and follow up with her doctor Examination is normal, Vital sign are stable Pt given information for clinics to follow up with pcp for further treatment and evaluation Also discussed strict return precautions in detail with pt who verbalized understanding
== END ==
LOC: ED 15:19
DX: M25.512 Pain in left shoulder (principal); Z53.21 Procedure and treatment not carried out due to patient leaving prior to being seen by health care provider

== ENCOUNTER 2019-04-15 13:01 | Outpatient (CLI) | payer MEDICARE ==
--- NOTE | 2019-04-15 15:25 | Magnetic Resonance Report ---
MRI left shoulder without contrast INDICATION: IMPINGEMENT SYNDROME OF SHOULDER REGION-LEFT. COMPARISON: None FINDINGS: There is advanced chronic clavicular and mild glenohumeral degenerative arthrosis. Bulky u ndersurface osteophytes are seen at AC joint, encroaching upon the supraspinatus muscle belly. The supraspinatus and infraspinatus tendons are completely torn and retracted with corresponding musc le belly atrophy. There is also abnormal thickening and intermediate fluid signal within the subscapu kathy cranial fibers suggesting partial tear. The biceps tendon shows internal tendinosis in the hori zontal intra-articular segment but is otherwise intact. There is moderate fluid within the subacromia l/subdeltoid and subcoracoid bursae. There is degenerative fraying of the labrum but no discrete tear. IMPRESSION: 1. Rotator cuff tendon tears with retraction as outlined above, with muscle belly atrophy suggesting chronicity. 2. Moderate bursitis. 3. Biceps tendinosis. 4. 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 Signer Name: Abdirahman Rouse MD Signed: 04/15/2019 3:20 PM Workstation Name: [id number]
== END 2019-04-15 13:02 | disposition home or self-care (01) ==
LOC: MRI 13:01
PROVIDERS: ATTEND Orthopaedic Surgery
DX: M75.102 Unspecified rotator cuff tear or rupture of left shoulder, not specified as traumatic (principal); M19.012 Primary osteoarthritis, left shoulder; M25.712 Osteophyte, left shoulder; M75.52 Bursitis of left shoulder

== ENCOUNTER 2019-04-25 07:51 | Emergency (ER) | payer MEDICARE ==
[2019-04-25] MEDS ORDERED: KETOROLAC 60 MG/2 ML INJ IM ONE (10:18)
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
[2019-04-25 11:14] VITALS: BP 142/97
== END 2019-04-25 11:15 | disposition home or self-care (01) ==
LOC: ED 07:51
DX: S46.912A Strain of unspecified muscle, fascia and tendon at shoulder and upper arm level, left arm, initial encounter (principal); F90.9 Attention-deficit hyperactivity disorder, unspecified type; M19.90 Unspecified osteoarthritis, unspecified site; J44.9 Chronic obstructive pulmonary disease, unspecified; F17.200 Nicotine dependence, unspecified, uncomplicated; Z98.890 Other specified postprocedural states; Z79.899 Other long term (current) drug therapy; Z88.6 Allergy status to analgesic agent; X58.XXXA Exposure to other specified factors, initial encounter; Y93.89 Activity, other specified; Y92.89 Other specified places as the place of occurrence of the external cause; Y99.8 Other external cause status
CPT/HCPCS: 96372; 99282; J1885

== ENCOUNTER 2019-09-30 09:56 | Outpatient (CLI) | payer MEDICARE ==
--- NOTE | 2019-09-30 12:27 | Magnetic Resonance Report ---
MR cervical spine wo con INDICATION / CLINICAL INFORMATION: 58 years Female; MAIN. TECHNIQUE: Multisequence, multiplanar images of the cervical spine were obtained. COMPARISON: The study is compared to the previous MRI of 05/15/2015. FINDINGS: CRANIOCERVICAL JUNCTION:No significant abnormality. ALIGNMENT: There is minimal anterolisthesis at C3-4 with associated endplate changes at. VERTEBRAE:There are also notable endplate changes involving the remaining lower cervical segments. Ad ditionally, there is moderate endplate edema at C7-T1. Slight edema is seen on the left at C6-7. VISUALIZED SPINAL CORD: The motion degrades image quality. However, the cervical spinal cord demonstr ate appropriate signal intensity. [id number] ANALYSIS: C2-3: There is no significant central spinal stenosis. There is mild right neural foraminal narrowing . C3-4: The posterior spondylosis slightly flattens the ventral cord with encroachment on the lateral r ecesses. The uncovertebral and facet joint hypertrophy result in marked neural from narrowing, greate r on the right. The findings appear to correlate with the previous MRI. C4-5: There is a slight disc bulge without ossific and central stenosis. There is moderate left neura l foraminal narrowing. C5-6: The posterior spondylosis effaces the ventral subarachnoid space and encroaches on the lateral recesses. There appears to be marked left and moderate to marked right neural foraminal narrowing. Th e findings may have slightly progressed from the prior exam. C6-7: The broad-based disc bulge effaces the subarachnoid space without significant direct cord compr ession. There is moderate to marked left neural foraminal narrowing. This finding may also progressed from the previous exam. C7-T1: There has been notable interval progression of the degenerative disc changes at this level wit h moderate endplate edema. The disc bulge mildly effaces the subarachnoid space without direct cord c ompression. There has been development of moderate to marked neural foraminal narrowing which appears greater on the left. PARASPINAL SOFT TISSUES: No significant abnormality. ADDITIONAL FINDINGS: No epidural collections are identified. IMPRESSION: 1. There has been significant interval progression of the degenerative disc changes at C7-T1 from 04/18 with developing endplate edema and moderate to marked neural foraminal narrowing. 2. There are continued multilevel degenerative the changes involving the remaining cervical spine wit h posterior spondylosis and neural foraminal narrowing as detailed above. Signer Name: Irving Delacruz MD Signed: 09/30/2019 12:23 PM Workstation Name: [id number]
--- NOTE | 2019-09-30 13:10 | Magnetic Resonance Report ---
MR lumbar spine wo con INDICATION / CLINICAL INFORMATION: 58 years Female; MAIN. TECHNIQUE: Multisequence, multiplanar images of the lumbar spine were obtained. COMPARISON: The study is compared to the previous MRI of 04/06/2018. FINDINGS: ALIGNMENT: There is no significant developing spondylolisthesis or scoliosis involving the lumbar spi ne. VERTEBRAE:This mild transitional component to the S1 vertebrae. There are advanced degenerative the d isc and endplate changes at L4-5 and L5-S1 with mild edema. Minimal findings are also seen involving the visualized thoracic and upper lumbar segments with presence of Schmorl's nodes. There is slight e hemalatha at T12-L1 and L1-2. VISUALIZED SPINAL CORD: The motion degrades image quality. However, the distal spinal cord appears to demonstrate appropriate signal intensity and terminates at L1-2. [id number] ANALYSIS: L1-2: There is a slight disc bulge without significant spinal stenosis or neural foraminal narrowing. L2-3: There is minimal a disc bulge without spinal stenosis. There is mild right neural foraminal luises rowing. L3-4: There is no significant central stenosis or neural foraminal narrowing. L4-5: There is notable facet joint arthropathy with bilateral effusions at. There is also diffuse a d isc bulge which contributes to mild to moderate neural foraminal and bilaterally. There is also mild degree of spinal stenosis. L5-S1: The posterior spondylosis and facet joint hypertrophy are greater on the left with mild encroa chment on the exiting left L5 nerve root sheath. Moderate foraminal narrowing is seen on the right.. There is component of epidural lipomatosis at this level with mild narrowing of the thecal sac. PARASPINAL SOFT TISSUES: No significant abnormality. ADDITIONAL FINDINGS: No epidural collections are identified. IMPRESSION: 1. There is diffuse a disc bulge and notable facet joint arthropathy at L4-L5 with mild to moderate n eural foraminal narrowing bilaterally.. 2. There are advanced degenerative disc changes at L5-S1, greater on the left with mild encroachment on the exiting left L5 nerve root sheath. Moderate foraminal narrowing is seen on the right. Signer Name: Irving Delacruz MD Signed: 09/30/2019 1:06 PM Workstation Name: [id number]
== END 2019-09-30 09:57 | disposition home or self-care (01) ==
LOC: MRI 09:56
DX: M47.23 Other spondylosis with radiculopathy, cervicothoracic region (principal); M47.27 Other spondylosis with radiculopathy, lumbosacral region; M48.061 Spinal stenosis, lumbar region without neurogenic claudication
CPT/HCPCS: 72141; 72148

== ENCOUNTER 2020-12-28 13:34 | Outpatient (CLI) | payer MEDICARE ==
[2020-12-28 14:21] LABS: Bilirubin,Urine NEG (Negative); Blood,Urine NEG (Negative); Color,Urine Yellow (Yellow); Protein,Urine <15 mg/dL mg/dL (Negative); Urobilinogen,Urine < 2.0 mg/dL (<2.0)
[2020-12-28 14:32] LABS: Hematocrit 42.6 % (30.3-42.9); Mean Corpuscular HGB Conc 33 % (30-34); Mean Corpuscular Volume 86 fl (79-97); Platelet Count 362 K/mm3 (140-440); Red Blood Count 4.94 M/mm3 (3.65-5.03); Red Cell Distribution Width 14.6 % (13.2-15.2)
[2020-12-28 14:42] LABS: INR 1.07 (0.87-1.13)
[2020-12-28 14:43] LABS: Partial Thromboplastin Time 25.8 Sec. (24.2-36.6)
[2020-12-28 14:58] LABS: Alanine Aminotransferase 11 units/L (7-56); Albumin 4.1 g/dL (3.9-5); Blood Urea Nitrogen 11 mg/dL (7-17); Calcium 8.8 mg/dL (8.4-10.2); Hemolysis Index 13
[2020-12-28 15:04] LABS: BUN/Creatinine Ratio 16
[2020-12-28 16:02] LABS: Platelet Estimate Consistent w Auto; RBC Morphology Normal; Total Cells Counted 100
--- NOTE | 2020-12-29 13:01 | Electrocardiograph Report ---
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
== END 2020-12-28 13:35 | disposition home or self-care (01) ==
LOC: LAB 13:34
PROVIDERS: ATTEND Internal Medicine
DX: Z13.1 Encounter for screening for diabetes mellitus (principal); R53.83 Other fatigue; R07.9 Chest pain, unspecified; R73.03 Prediabetes; E78.2 Mixed hyperlipidemia; Z79.01 Long term (current) use of anticoagulants
CPT/HCPCS: 36415; 80053; 81001; 83036; 84443; 85007; 85025; 85610; 85730; 93005

== ENCOUNTER 2021-06-06 18:04 | Emergency (ER) | payer MEDICARE ==
[2021-06-06 18:15] VITALS: BP 139/84
== END 2021-06-06 18:45 | disposition left against medical advice (07) ==
LOC: ED 18:04
DX: T81.49XA Infection following a procedure, other surgical site, initial encounter (principal); Z53.21 Procedure and treatment not carried out due to patient leaving prior to being seen by health care provider